=== PATIENT | male | born 1945 | race Caucasian/White ===

== ENCOUNTER 2022-08-25 10:17 | Observation (INO) | payer OTHER, MEDICARE, SELFPAY ==
--- NOTE | ~2022-08-25 | CT_ITS ---
EXAMINATION: CT ANGIOGRAM NECK WITH CONTRAST CT ANGIOGRAM BRAIN WITH CONTRAST CLINICAL INFORMATION: Diplopia. Rule out optic chiasm mass. COMPARISON: None. TECHNIQUE: Test bolus sequences followed by intravenous administration 100 mL of Omnipaque 350. Helical imaging was performed in the axial plane from the thoracic inlet to the skull vertex. Delayed postcontrast imaging of the head was also performed. The data was processed at the tomography technologist workstation for generation of MIP sequences. Angled MIPs and volume rendered reformatted images were also generated at an offline 3D workstation. Stenoses are assessed in accordance with NASCET criteria unless otherwise indicated. This CT examination was performed using dose optimization techniques as appropriate, variously including the following: *Automated exposure control *Adjustment of mA and/or kV according to patient size (this includes techniques or standardized protocols for targeted exams where dose is matched to indication/reason for exam; i.e. extremities or head) *Use of iterative reconstruction technique DLP: [id number] mGy-cm FINDINGS: Head CT: There is no intracranial hemorrhage, extra-axial collection, mass effect, or territorial infarction. There is no abnormal enhancement. The ventricles are normal in size without hydrocephalus. There is no evidence of optic nerve compression. The right maxillary sinus is atelectatic and partly opacified. There is mild paranasal sinus mucosal thickening. Mastoids are clear. Neck CTA: Atheromatous changes are seen involving the aortic arch and great vessels. There is no great vessel stenosis. Significant atheromatous changes are seen at the carotid bifurcations resulting in less than 50% stenosis the proximal right internal carotid artery. There is approximately 50% stenosis of the proximal left internal carotid artery. Both cervical ICA segments are patent. There is focal severe stenosis of the right vertebral artery origin. Both vertebral arteries are otherwise patent. Head CTA: No large vessel occlusion is seen. Atheromatous changes are seen at the carotid bifurcations. The anterior circulation is patent. There is focal mild stenosis of the right vertebral artery dural penetration. Atheromatous changes are seen along the intradural right vertebral artery resulting in mild stenosis. The basilar artery and rat trapper are patent. Both posterior communicating arteries are present. No aneurysm is seen. Non-vascular findings: No consolidation is seen in the upper lungs. Multilevel degenerative changes are seen within the spine. There is moderate to severe spinal canal stenosis at C5-C6 and C6-C7. CT/CT angio head neck IMPRESSION: CT HEAD: No intracranial hemorrhage or large acute infarction. No evidence of optic nerve compression. CTA NECK: Severe stenosis of the right vertebral artery origin. Approximately 50% stenosis of the proximal left internal carotid artery. Less than 50% stenosis of the proximal right internal carotid artery. CTA HEAD: 1. No large vessel occlusion or significant stenosis within the intracranial circulation. Additional findings: Severe spinal canal stenosis at C5-C6 and C6-C7.
--- NOTE | ~2022-08-25 | MR_ITS ---
MRI OF THE BRAIN WITHOUT IV CONTRAST INDICATION: Diplopia. COMPARISON: CT head and CTA head and neck 08/25/2022. TECHNIQUE: Multiplanar multisequence MR imaging of the brain was obtained without IV contrast. FINDINGS: There is no hydrocephalus, extra-axial surface collection, or herniation. There is a band of chronic encephalomalacia and gliosis extending across the body of the corpus callosum centrally. Partial loss of the right vertebral artery flow void in keeping with a severe right vertebral artery stenosis seen on the earlier CTA of the head and neck. There is no acute infarct on diffusion-weighted imaging. There is no intracranial hemorrhage on the gradient recalled echo acquisition. Punctate focus of chronic hemosiderin staining within the right occipital lobe. The midline structures are normal. The cerebellar tonsils are normally positioned. The cerebellum and brainstem are normal. The craniocervical junction is normal. Osseous marrow signal intensity is homogenous. The visualized soft tissues are unremarkable. Right maxillary sinus is atelectatic. Mild mucosal thickening throughout the paranasal sinuses. Mastoid air cells are clear. MR/MR head/brain wo con IMPRESSION: - No acute intracranial findings. - There is a band of chronic encephalomalacia and gliosis extending across the body of the corpus callosum centrally. - Partial loss of the right vertebral artery flow void in keeping with a severe right vertebral artery stenosis seen on the earlier CTA of the head and neck.
--- NOTE | ~2022-08-25 | CT_ITS ---
EXAMINATION: CT HEAD WITHOUT CONTRAST CLINICAL INFORMATION: Double vision COMPARISON: None available. TECHNIQUE: Contiguous axial imaging was performed from the skull base to vertex without intravenous administration of contrast. This CT examination was performed using dose optimization techniques as appropriate, variously including the following: *Automated exposure control *Adjustment of mA and/or kV according to patient size (this includes techniques or standardized protocols for targeted exams where dose is matched to indication/reason for exam; i.e. extremities or head) *Use of iterative reconstruction technique DLP: 690 mGy-cm FINDINGS: There is no evidence of an extra-axial axial collection. There is no evidence of intra-axial extra-axial hemorrhage. The ventricles and extra-axial CSF spaces are slightly prominent suggestive of mild generalized atrophy. There is nonspecific periventricular white matter disease. No mass, mass effect or infarct is seen. There is evidence of atherosclerotic disease. No skull fracture. The right maxillary sinus is smaller than the left. There is a polyp or membranous soft tissue thickening seen in the right maxillary sinus. Visualized paranasal sinuses, mastoid air cells and middle ears are otherwise clear. CT/CT head/brain wo IV con IMPRESSION: No acute findings. Mild generalized atrophy and nonspecific periventricular white matter disease. Mild right maxillary sinus disease.
[2022-08-25 10:20] VITALS: BP 132/60; PULSE 89; RESP 19; TEMP 36.6; O2SAT 98; BMI 31.4
[2022-08-25 13:33] VITALS: BP 134/86; PULSE 88; RESP 18; TEMP 36; O2SAT 97
--- NOTE | 2022-08-25 13:34 | ED.EYEPROB ---
HPI - Eye Problem General Chief complaint: Eye Problems <JUAREZ Butler - Last Filed: 08/25/22 13:36> Stated complaint: Blurred vision [facility] <JUAREZ Butler - Last Filed: 08/25/22 13:36> Time Seen by Provider: 08/25/22 17:55 <JUAREZ Butler - Last Filed: 08/25/22 13:36> Source: patient, RN notes reviewed and old records reviewed <Tristin Fong - Last Filed: 08/25/22 23:05> Mode of arrival: ambulatory <Tristin Fong - Last Filed: 08/25/22 23:05> Limitations: no limitations <Tristin Fong - Last Filed: 08/25/22 23:05> History of Present Illness HPI Narrative: 77-year-old male past medical history significant for diabetes, hypertension, glaucoma, cataract presents for evaluation of double vision. Patient reports that starting around mid day on Thursday, 3 days ago he developed double vision in his left eye He states if he has both with eyes open ever since then he is seeing two of everything. He denies any headache, pain, weakness difficulty speaking. Patient has been using eye patch to the left eye to prevent double vision for the last 3 days He [facility] but was told to come to emergency department instead He is not on any anticoagulation He has no other complaints or concerns this time <Tristin Fong - Last Filed: 08/25/22 23:05> Related Data Allergies/adverse reactions: Allergies Allergy/AdvReac Type Severity Reaction Status Date / Time amlodipine [Norvasc] Allergy Unknown headache Verified 08/25/22 10:20 bupropion [Wellbutrin] Allergy Unknown nausea and Verified 08/25/22 10:20 vomiting penicillin V Allergy Unknown rash Verified 08/25/22 10:20 Penicillins [PENICILLINS] Allergy Unknown UNKNOWN Verified 08/25/22 10:20 <JUAREZ Butler - Last Filed: 08/25/22 13:36> Review of Systems Constitutional: Constitutional: Reports as per HPI, Denies chills, Denies fatigue and Denies fever(s) <Tristin Fong - Last Filed: 08/25/22 23:05> Eyes: Eyes: Reports diplopia <Tristin Fong - Last Filed: 08/25/22 23:05> Cardiovascular: Cardiovascular: Denies chest pain and Denies dyspnea <Tristin Fong - Last Filed: 08/25/22 23:05> Respiratory: Respiratory: Denies cough and Denies dyspnea <Tristin Fong - Last Filed: 08/25/22 23:05> Gastrointestinal: Gastrointestinal: Denies abdominal pain, Denies constipation and Denies vomiting <Tristin Fong - Last Filed: 08/25/22 23:05> Genitourinary: Genitourinary: Denies difficulty urinating and Denies dysuria <Tristin Fong - Last Filed: 08/25/22 23:05> Neurologic: Denies focal weakness <Tristin Fong - Last Filed: 08/25/22 23:05> Endocrine: Endocrine: Denies fatigue <Tristin Fong - Last Filed: 08/25/22 23:05> [facility] Past Medical History Medical History: Medical History (Updated 08/25/22 @ 23:05 by Tristin Fong) Cataracts, bilateral Diabetes Hypertension <JUAREZ Butler - Last Filed: 08/25/22 13:36> Social History Social History: Social History (Updated 08/25/22 @ 22:48 by Wendy Mccallum MD) Alcohol intake: current Patient Tobacco Use Status: Former Tobacco user Use of substances other than those prescribed or required for medical reasons: No Advance Directives: No Advance Directives Information Provided: Yes <JUAREZ Butler - Last Filed: 08/25/22 13:36> Physical Exam Vital Signs: Vital Signs: Last Vital Signs Temp 97.9 F 08/25/22 22:00 Pulse 73 08/25/22 22:00 Resp 16 08/25/22 22:00 BP 129/81 08/25/22 22:00 Pulse Ox 98 08/25/22 22:00 O2 Del Method Room Air 08/25/22 22:00 BMI result Body Mass Index 31.4 <JUAREZ Butler - Last Filed: 08/25/22 13:36> Vital Signs: Last Vital Signs Temp 97.9 F 08/25/22 22:00 Pulse 73 08/25/22 22:00 Resp 16 08/25/22 22:00 BP 129/81 08/25/22 22:00 Pulse Ox 98 08/25/22 22:00 O2 Del Method Room Air 08/25/22 22:00 BMI result Body Mass Index 31.4 <Tristin - Last Filed: 08/25/22 23:05> Const: General: healthy appearing, comfortable, no acute distress, alert and awake < - Last Filed: 08/25/22 23:05> Nutritional Appearance: well nourished < - Last Filed: 08/25/22 23:05> Orientation/consciousness: patient oriented x3 < - Last Filed: 08/25/22 23:05> HEENT: Head: Yes normocephalic and Yes atraumatic < - Last Filed: 08/25/22 23:05> Throat: Yes posterior oropharynx normal < - Last Filed: 08/25/22 23:05> Eyes: Other: 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 < - Last Filed: 08/25/22 23:05> Visual Abbott: normal visual abbott by confrontation < Last Filed: 08/25/22 23:05> Alignment and Position: alignment normal (Patient has a slight left medial nystagmus) <Tristin - Last Filed: 08/25/22 23:05> Periorbital: periorbital findings normal < - Last Filed: 08/25/22 23:05> Eyelids: Yes eyelids normal < - Last Filed: 08/25/22 23:05> Conjunctivae: conjunctivae normal < - Last Filed: 08/25/22 23:05> Sclerae: sclerae normal < - Last Filed: 08/25/22 23:05> Pupils: Equal, round and reactive pupils present < - Last Filed: 08/25/22 23:05> EOM: EOMs intact bilaterally (In all cardinal directions) and No Nystagmus present <Tristin CullenJose - Last Filed: 08/25/22 23:05> Neck: Neck: Yes full ROM <Tristincesar Fong - Last Filed: 08/25/22 23:05> Resp: Effort & Inspection: normal respiratory effort, able to speak in complete sentences, no audible wheezes and not labored <Tristin Gloriay - Last Filed: 08/25/22 23:05> Auscultation: clear to auscultation bilaterally <Tristin Gloriay - Last Filed: 08/25/22 23:05> Cardio: Rate: regular rate <Tristin CullenCaroy - Last Filed: 08/25/22 23:05> Rhythm: regular rhythm <Tristin OFelice - Last Filed: 08/25/22 23:05> Skin: General skin exam: no rashes or lesions noted and elasticity normal <Tristin CullenCaroy - Last Filed: 08/25/22 23:05> Neuro: General: patient oriented x3 <Tristin Gloriay - Last Filed: 08/25/22 23:05> Cranial nerves: Yes CN's II-XII intact bilaterally, Yes Equal, round and reactive pupils present, Yes Bilaterally intact EOM present and No Nystagmus present <Tristin CullenJose Last Filed: 08/25/22 23:05> Cognition (Neuro): normal cognition <Tristin Hetal - Last Filed: 08/25/22 23:05> Course Course Course Narrative: RME - 77 y/o male with history of DM, HTN who presents to the ER for evaluation of left eye double vision that came on suddenly 4 days ago. He has been wearing an eye patch on the left eye because it was bothering him. No weakness, numbness, tingling, dizziness. Plan: CT head, labs, eye exam in treatment room <JUAREZ Butler - Last Filed: 08/25/22 13:36> Reevaluation(s) Reevaluation #1: Unfortunately, we were unable to get MRI today, as they are not available. I will attempt to admit the patient to hospitalist service for MRI. <Tristin Fong - Last Filed: 08/25/22 23:05> Time: 19:56 <Tristin Fong - Last Filed: 08/25/22 23:05> Reevaluation #2: I spoke to Dr. Mccallum who recommend CT angiography of the head and neck which was ordered. After Dr Mccallum saw the patient, she recommend adding on CT orbit with contrast which are ordered as well. I discussed this with the biological science technician prior to the patient receiving the exam is <Tristin Fong - Last Filed: 08/25/22 23:05> Time: 20:10 <Tristin Fong - Last Filed: 08/25/22 23:05> Medications Administered Discontinued Medications Generic Name Dose Route Start Last Admin Trade Name Freq PRN Reason Stop Dose Admin Acetaminophen 650 mg 08/25/22 20:35 08/25/22 21:46 Acetaminophen 325 Mg Tablet PO 08/25/22 20:36 650 mg ONCE ONE Administration Iohexol 100 ml 08/25/22 21:34 08/25/22 21:34 Iohexol 350 Mg/Ml 100 Ml Infus..Btl IV 08/25/22 21:35 70 ml ONCE ONE Administration <JUAREZ Butler - Last Filed: 08/25/22 13:36> Medications Administered Discontinued Medications Generic Name Dose Route Start Last Admin Trade Name Freq PRN Reason Stop Dose Admin Acetaminophen 650 mg 08/25/22 20:35 08/25/22 21:46 Acetaminophen 325 Mg Tablet PO 08/25/22 20:36 650 mg ONCE ONE Administration Iohexol 100 ml 08/25/22 21:34 08/25/22 21:34 Iohexol 350 Mg/Ml 100 Ml Infus..Btl IV 08/25/22 21:35 70 ml ONCE ONE Administration <Tristin Fong - Last Filed: 08/25/22 23:05> Medical Decision Making Medical Decision Making MDM Narrative: 77-year-old male presents for evaluation of sudden onset of diplopia started 3 days ago. He had no associated weakness, dizziness, slurred speech. Concern for mass versus CVA. Labs are without significant abnormality. CT scan of the brain does not show any acute findings. Will proceed with MRI of the brain to evaluate for acute CVA versus mass. The patient had no trauma to the eye, no pain to suggest acute glaucoma issue. Current NIH stroke score is 0 <Tristin Fong - Last Filed: 08/25/22 23:05> Differential Diagnosis CVA Brain lesion Cranial nerve palsy Diplopia <Tristin Fong - Last Filed: 08/25/22 23:05> Lab Data Result Diagrams: 08/25/22 13:57 08/25/22 13:57 <JUAREZ Butler - Last Filed: 08/25/22 13:36> Labs: Lab Results 08/25/22 08/25/22 08/25/22 Range/Units 13:57 13:57 13:57 WBC 7.3 (4.8-10.8) X10*3/uL RBC 4.95 (4.60-5.80) X10*6/uL Hgb 15.2 (14.0-18.0) g/dl Hct 45.2 (42.0-52.0) % MCV 91.3 (80.0-98.0) fL MCH 30.7 (27.0-33.0) pg MCHC 33.6 (31.0-36.0) g/dl RDW 13.2 (11.0-16.0) % Plt Count 230 (160-400) X10*3/uL MPV 9.2 L (9.4-12.4) fL Immature Gran % (Auto) 0.3 (0.0-0.4) % Neut % (Auto) 55.4 (45-73) % Lymph % (Auto) 33.4 (20-40) % [place] % (Auto) 8.2 (2-11) % Eos % (Auto) 2.2 (0-4) % Baso % (Auto) 0.5 (0-2) % Lymph # (Auto) 2.4 (1.2-4.9) X10*3/uL [place] # (Auto) 0.6 (0.1-1.2) X10*3/uL Eos # (Auto) 0.2 (0.0-0.4) X10*3/uL Baso # (Auto) 0.0 (0.0-0.2) X10*3/uL Abs Immat Gran (auto) 0.02 (0.00-0.03) X10*3/uL Absolute Neuts (auto) 4.0 (2.0-8.3) x10*3/uL Absolute Nucleated RBC 0.000 (0.0-0.012) X10*3/uL Nucleated RBC % (auto) 0.0 (0.0-0.2) /100WBC ESR 16 H (0-15) MM/HR Sodium 143 (135-145) mmol/L Potassium 4.1 (3.3-5.1) mmol/L Chloride 109 H (96-108) mmol/L Carbon Dioxide 22 (22-29) mmol/L Anion Gap 16 (12-20) BUN 33 H (9-16) mg/dL Creatinine 1.04 (0.5-1.4) mg/dL Estim Creat Clear Calc 72.3 Estimated GFR > 60 POC Glucose (60-115) mg/dL Random Glucose 158 H (60-115) mg/dL Estimat Average Glucose mg/dL Hemoglobin A1c % % Calcium 9.6 (8.4-10.2) mg/dL Total Bilirubin 0.4 (0.0-1.0) mg/dL AST 14 (5-37) U/L ALT 20 (0-40) U/L Alkaline Phosphatase 55 (39-117) U/L C-Reactive Protein 0.85 H (< or = 0.50) mg/dL Total Protein 7.2 (6.5-8.0) g/dL Albumin 4.4 (3.5-5.0) g/dL 08/25/22 08/25/22 Range/Units 13:57 19:35 WBC (4.8-10.8) X10*3/uL RBC (4.60-5.80) X10*6/uL Hgb (14.0-18.0) g/dl Hct (42.0-52.0) % MCV (80.0-98.0) fL MCH (27.0-33.0) pg MCHC (31.0-36.0) g/dl RDW (11.0-16.0) % Plt Count (160-400) X10*3/uL MPV (9.4-12.4) fL Immature Gran % (Auto) (0.0-0.4) % Neut % (Auto) (45-73) % Lymph % (Auto) (20-40) % [place] % (Auto) (2-11) % Eos % (Auto) (0-4) % Baso % (Auto) (0-2) % Lymph # (Auto) (1.2-4.9) X10*3/uL [place] # (Auto) (0.1-1.2) X10*3/uL Eos # (Auto) (0.0-0.4) X10*3/uL Baso # (Auto) (0.0-0.2) X10*3/uL Abs Immat Gran (auto) (0.00-0.03) X10*3/uL Absolute Neuts (auto) (2.0-8.3) x10*3/uL Absolute Nucleated RBC (0.0-0.012) X10*3/uL Nucleated RBC % (auto) (0.0-0.2) /100WBC ESR (0-15) MM/HR Sodium (135-145) mmol/L Potassium (3.3-5.1) mmol/L Chloride (96-108) mmol/L Carbon Dioxide (22-29) mmol/L Anion Gap (12-20) BUN (9-16) mg/dL Creatinine (0.5-1.4) mg/dL Estim Creat Clear Calc Estimated GFR POC Glucose 137 H (60-115) mg/dL Random Glucose (60-115) mg/dL Estimat Average Glucose 171 mg/dL Hemoglobin A1c % 7.6 % Calcium (8.4-10.2) mg/dL Total Bilirubin (0.0-1.0) mg/dL AST (5-37) U/L ALT (0-40) U/L Alkaline Phosphatase (39-117) U/L C-Reactive Protein (< or = 0.50) mg/dL Total Protein (6.5-8.0) g/dL Albumin (3.5-5.0) g/dL <JUAREZ Butler - Last Filed: 08/25/22 13:36> Lab Results 08/25/22 08/25/22 08/25/22 Range/Units 13:57 13:57 13:57 WBC 7.3 (4.8-10.8) X10*3/uL RBC 4.95 (4.60-5.80) X10*6/uL Hgb 15.2 (14.0-18.0) g/dl Hct 45.2 (42.0-52.0) % MCV 91.3 (80.0-98.0) fL MCH 30.7 (27.0-33.0) pg MCHC 33.6 (31.0-36.0) g/dl RDW 13.2 (11.0-16.0) % Plt Count 230 (160-400) X10*3/uL MPV 9.2 L (9.4-12.4) fL Immature Gran % (Auto) 0.3 (0.0-0.4) % Neut % (Auto) 55.4 (45-73) % Lymph % (Auto) 33.4 (20-40) % [place] % (Auto) 8.2 (2-11) % Eos % (Auto) 2.2 (0-4) % Baso % (Auto) 0.5 (0-2) % Lymph # (Auto) 2.4 (1.2-4.9) X10*3/uL [place] # (Auto) 0.6 (0.1-1.2) X10*3/uL Eos # (Auto) 0.2 (0.0-0.4) X10*3/uL Baso # (Auto) 0.0 (0.0-0.2) X10*3/uL Abs Immat Gran (auto) 0.02 (0.00-0.03) X10*3/uL Absolute Neuts (auto) 4.0 (2.0-8.3) x10*3/uL Absolute Nucleated RBC 0.000 (0.0-0.012) X10*3/uL Nucleated RBC % (auto) 0.0 (0.0-0.2) /100WBC ESR 16 H (0-15) MM/HR Sodium 143 (135-145) mmol/L Potassium 4.1 (3.3-5.1) mmol/L Chloride 109 H (96-108) mmol/L Carbon Dioxide 22 (22-29) mmol/L Anion Gap 16 (12-20) BUN 33 H (9-16) mg/dL Creatinine 1.04 (0.5-1.4) mg/dL Estim Creat Clear Calc 72.3 Estimated GFR > 60 POC Glucose (60-115) mg/dL Random Glucose 158 H (60-115) mg/dL Estimat Average Glucose mg/dL Hemoglobin A1c % % Calcium 9.6 (8.4-10.2) mg/dL Total Bilirubin 0.4 (0.0-1.0) mg/dL AST 14 (5-37) U/L ALT 20 (0-40) U/L Alkaline Phosphatase 55 (39-117) U/L C-Reactive Protein 0.85 H (< or = 0.50) mg/dL Total Protein 7.2 (6.5-8.0) g/dL Albumin 4.4 (3.5-5.0) g/dL 08/25/22 08/25/22 Range/Units 13:57 19:35 WBC (4.8-10.8) X10*3/uL RBC (4.60-5.80) X10*6/uL Hgb (14.0-18.0) g/dl Hct (42.0-52.0) % MCV (80.0-98.0) fL MCH (27.0-33.0) pg MCHC (31.0-36.0) g/dl RDW (11.0-16.0) % Plt Count (160-400) X10*3/uL MPV (9.4-12.4) fL Immature Gran % (Auto) (0.0-0.4) % Neut % (Auto) (45-73) % Lymph % (Auto) (20-40) % [place] % (Auto) (2-11) % Eos % (Auto) (0-4) % Baso % (Auto) (0-2) % Lymph # (Auto) (1.2-4.9) X10*3/uL [place] # (Auto) (0.1-1.2) X10*3/uL Eos # (Auto) (0.0-0.4) X10*3/uL Baso # (Auto) (0.0-0.2) X10*3/uL Abs Immat Gran (auto) (0.00-0.03) X10*3/uL Absolute Neuts (auto) (2.0-8.3) x10*3/uL Absolute Nucleated RBC (0.0-0.012) X10*3/uL Nucleated RBC % (auto) (0.0-0.2) /100WBC ESR (0-15) MM/HR Sodium (135-145) mmol/L Potassium (3.3-5.1) mmol/L Chloride (96-108) mmol/L Carbon Dioxide (22-29) mmol/L Anion Gap (12-20) BUN (9-16) mg/dL Creatinine (0.5-1.4) mg/dL Estim Creat Clear Calc Estimated GFR POC Glucose 137 H (60-115) mg/dL Random Glucose (60-115) mg/dL Estimat Average Glucose 171 mg/dL Hemoglobin A1c % 7.6 % Calcium (8.4-10.2) mg/dL Total Bilirubin (0.0-1.0) mg/dL AST (5-37) U/L ALT (0-40) U/L Alkaline Phosphatase (39-117) U/L C-Reactive Protein (< or = 0.50) mg/dL Total Protein (6.5-8.0) g/dL Albumin (3.5-5.0) g/dL <Tristin Fong - Last Filed: 08/25/22 23:05> Discharge Plan Discharge Clinical Impression: Diplopia <JUAREZ Butler - Last Filed: 08/25/22 13:36> Patient Disposition: Admitted As Inpatient <JUAREZ Butler - Last Filed: 08/25/22 13:36>
[2022-08-25 14:00] LABS: MANUAL DIFF FLAG NO
[2022-08-25 14:08] LABS: Basophils Percent Auto 0.5 % (0-2); Eosinophils Absolute Auto 0.2 X10*3/uL (0.0-0.4); Eosinophils Percent Auto 2.2 % (0-4); Hematocrit 45.2 % (42.0-52.0); Hemoglobin 15.2 g/dl (14.0-18.0); Imm Gran Abs Auto 0.02 X10*3/uL (0.00-0.03); Imm Gran Pct Auto 0.3 % (0.0-0.4); Lymphocytes Absolute Auto 2.4 X10*3/uL (1.2-4.9); Lymphocytes Percent Auto 33.4 % (20-40); Mean Corpuscular HGB Conc 33.6 g/dl (31.0-36.0); Mean Corpuscular Hemoglobin 30.7 pg (27.0-33.0); Mean Corpuscular Volume 91.3 fL (80.0-98.0); Mean Platelet Volume 9.2 fL (9.4-12.4); Monocytes Absolute Auto 0.6 X10*3/uL (0.1-1.2); Monocytes Percent Auto 8.2 % (2-11); Neutrophils Percent Auto 55.4 % (45-73); Platelet Count 230 X10*3/uL (160-400); Red Blood Count 4.95 X10*6/uL (4.60-5.80); Red Cell Distribution Width 13.2 % (11.0-16.0); White Blood Count 7.3 X10*3/uL (4.8-10.8)
[2022-08-25 14:26] LABS: Alanine Aminotransferase 20 U/L (0-40); Albumin Level 4.4 g/dL (3.5-5.0); Alkaline Phosphatase 55 U/L (39-117); Anion Gap 16 (12-20); Aspartate Amino Transferase 14 U/L (5-37); Bilirubin Total 0.4 mg/dL (0.0-1.0); Blood Urea Nitrogen 33 mg/dL (9-16); C Reactive Protein 0.85 mg/dL (< or = 0.50); Calcium 9.6 mg/dL (8.4-10.2); Carbon Dioxide 22 mmol/L (22-29); Chloride 109 mmol/L (96-108); Creatinine Clr Calc Pharmacy 72.3; Estimated Glomerular Filt Rate > 60; Glucose Random 158 mg/dL (60-115); Potassium 4.1 mmol/L (3.3-5.1); Sodium 143 mmol/L (135-145); Total Protein 7.2 g/dL (6.5-8.0)
[2022-08-25 14:39] LABS: Estimated Average Glucose 171 mg/dL; Hemoglobin A1c % 7.6 %
[2022-08-25 15:11] LABS: Erythrocyte Sedimentation Rate 16 MM/HR (0-15)
[2022-08-25 19:28] VITALS: BP 160/82; PULSE 71; RESP 16; TEMP 36.6; O2SAT 98
--- NOTE | 2022-08-25 19:30 | MHC.EDTECH ---
THIS PCT ASSUMED CARE OF PT AT 1900 ,PT VISUAL ACUITY CHECK DONE AND VITALS SIGN TAKEN.
--- NOTE | 2022-08-25 19:36 | MHC.EDTECH ---
patient said he been here since morning, asked if i could check his sugar because ,he did not eat anything since morning ,blood sugar was checked rn Shivani is aware of result of 137 ,Grham cracker and diet tana zeina given .
[2022-08-25 19:53] LABS: Glucose, Whole Blood 137 mg/dL (60-115)
[2022-08-25] MEDS: iohexoL 350 MG/ML 100 ML INFUS..BTL IV (21:34)
[2022-08-25] MEDS: Acetaminophen 325 MG TABLET 650 MG PO (21:46)
[2022-08-25 22:00] VITALS: BP 129/81; PULSE 73; RESP 16; TEMP 36.6; O2SAT 98
[2022-08-25 22:42] VITALS: BP 127/71; PULSE 71; RESP 16; TEMP 36.7; O2SAT 98
--- NOTE | 2022-08-25 22:43 | P.HPHOSP_ITS ---
History of Present Illness Date of Service: 08/25/22 Chief Complaint: double vision 77-year-old male with past medical history of hypertension, diabetes presents to the hospital with complaints of double vision in his left eye.No pain, no tenderness. Denies any trauma, no recent injury, reports no numbness weakness or tingling in face or extremities. Reports no change in his speech. Reports diplopia since Thursday, sudden onset, no other change in vision. Denies any history of stroke, no similar episode in the past. Patient reports developing a headache while in the ED but otherwise denies any chest pain, no shortness of breath, no abdominal pain nausea or vomiting, no diarrhea or constipation, no ur inary symptoms and no lower extremity edema. On arrival to the ED patient hemodynamically stable labs reviewed, on with no significant abnormalities Has CT shows no acute findings, shows mild generalized atrophy and nonspecific periventricular white matter disease, mild right maxillary sinus disease Head and neck CT angiogram shows no large vessel occlusion or significant stenosis within the intracranial circulation, no mass, and no evidence of optic nerve compression. There is severe spinal canal stenosis at C5-C6 and C6 and C7 MRI ordered and patient will be admitted for further evaluation Review of Systems Review of Systems: Yes all other systems are reviewed and are negative [facility] Medical History (Updated 08/25/22 @ 22:48 by Wendy Mccallum MD) Cataracts, bilateral Diabetes Hypertension Social History (Updated 08/25/22 @ 22:48 by Wendy Mccallum MD) Alcohol intake: current Patient Tobacco Use Status: Former Tobacco user Meds Allergies Allergy/AdvReac Type Severity Reaction Status Date / Time amlodipine [Norvasc] Allergy Unknown headache Verified 08/25/22 10:20 bupropion [Wellbutrin] Allergy Unknown nausea and Verified 08/25/22 10:20 vomiting penicillin V Allergy Unknown rash Verified 08/25/22 10:20 Penicillins [PENICILLINS] Allergy Unknown UNKNOWN Verified 08/25/22 10:20 Physical Exam Vital Signs and Narrative: Vital Signs: Last Vital Signs Temp 97.9 F 08/25/22 22:00 Pulse 73 08/25/22 22:00 Resp 16 08/25/22 22:00 BP 129/81 08/25/22 22:00 Pulse Ox 98 08/25/22 22:00 O2 Del Method Room Air 08/25/22 22:00 BMI result Body Mass Index 31.4 Eyes: Other: right eye redness left eye has white growth in 12 o'clock that appears to be a pterygium Neuro: Other: cranial nerves 2-12 intact, strength 5/5 in all extremities, Results Labs 08/25/22 13:57 08/25/22 13:57 Labs: Laboratory Results - last 24 hr 08/25/22 08/25/22 08/25/22 13:57 13:57 13:57 MCV 91.3 MCH 30.7 MCHC 33.6 RDW 13.2 Plt Count 230 MPV 9.2 L Immature Gran % (Auto) 0.3 Neut % (Auto) 55.4 Lymph % (Auto) 33.4 [place] % (Auto) 8.2 Eos % (Auto) 2.2 Baso % (Auto) 0.5 Lymph # (Auto) 2.4 [place] # (Auto) 0.6 Eos # (Auto) 0.2 Baso # (Auto) 0.0 Abs Immat Gran (auto) 0.02 Absolute Neuts (auto) 4.0 Absolute Nucleated RBC 0.000 Nucleated RBC % (auto) 0.0 ESR 16 H Anion Gap 16 Estim Creat Clear Calc 72.3 Estimated GFR > 60 POC Glucose Random Glucose 158 H Estimat Average Glucose Hemoglobin A1c % Calcium 9.6 Total Bilirubin 0.4 AST 14 ALT 20 Alkaline Phosphatase 55 C-Reactive Protein 0.85 H Total Protein 7.2 Albumin 4.4 08/25/22 08/25/22 13:57 19:35 MCV MCH MCHC RDW Plt Count MPV Immature Gran % (Auto) Neut % (Auto) Lymph % (Auto) [place] % (Auto) Eos % (Auto) Baso % (Auto) Lymph # (Auto) [place] # (Auto) Eos # (Auto) Baso # (Auto) Abs Immat Gran (auto) Absolute Neuts (auto) Absolute Nucleated RBC Nucleated RBC % (auto) ESR Anion Gap Estim Creat Clear Calc Estimated GFR POC Glucose 137 H Random Glucose Estimat Average Glucose 171 Hemoglobin A1c % 7.6 Calcium Total Bilirubin AST ALT Alkaline Phosphatase C-Reactive Protein Total Protein Albumin Imaging Radiologist's Impressions: Impressions Head CT 08/25/22 12:41 IMPRESSION: No acute findings. Mild generalized atrophy and nonspecific periventricular white matter disease. Mild right maxillary sinus disease. Head/Neck CTA 08/25/22 21:44 IMPRESSION: CT HEAD: No intracranial hemorrhage or large acute infarction. No evidence of optic nerve compression. CTA NECK: Severe stenosis of the right vertebral artery origin. Approximately 50% stenosis of the proximal left internal carotid artery. Less than 50% stenosis of the proximal right internal carotid artery. CTA HEAD: 1. No large vessel occlusion or significant stenosis within the intracranial circulation. Additional findings: Severe spinal canal stenosis at C5-C6 and C6-C7. Assessment and Plan (1) Diplopia: Status: Acute Plan 77-year-old male with past medical history of hypertension and diabetes presents to the hospital with complaints of diplopia # diplopia - CVA versus underlying opthlamthic ds less likely - risk factors for cva include dm, and HTN - will obtain MRI in am - will obtain Lipid battery - neurology consulted # HTN - stable - continue home meds - not in hypertensive crisis at this time # DM - LDSSI DVT ppx: early ambulation Time Spent With Patient Time: Total time managing care of this patient today ____ minutes. Quality Stroke Does the patient have a stroke diagnosis?: No VTE Prior VTE?: No VTE Risk Level:: Medical - low VTE Device Contraindication: Treatment Not Indicated VTE Drug Contraindication: Treatment Not Indicated
[2022-08-26] VITALS: BP 132/74; PULSE 76; RESP 16; TEMP 36.6; O2SAT 97
[2022-08-26 04:00] VITALS: BP 125/75; PULSE 71; RESP 16; TEMP 36.6; O2SAT 98
--- NOTE | 2022-08-26 04:00 | MHC.EDTECH ---
0400 ROUNDING DONE ,VITALS SIGN TAKEN ,PATIENT SLEEPING ,350 ML URINE EMPTY .
[2022-08-26 07:02] LABS: Alanine Aminotransferase 21 U/L (0-40); Albumin Level 4.1 g/dL (3.5-5.0); Alkaline Phosphatase 51 U/L (39-117); Anion Gap 11 (12-20); Aspartate Amino Transferase 18 U/L (5-37); Bilirubin Total 0.7 mg/dL (0.0-1.0); Blood Urea Nitrogen 30 mg/dL (9-16); Calcium 9.3 mg/dL (8.4-10.2); Carbon Dioxide 26 mmol/L (22-29); Chloride 107 mmol/L (96-108); Cholesterol 167 mg/dL; Creatinine Clr Calc Pharmacy 87.4; Estimated Glomerular Filt Rate > 60; Glucose Random 153 mg/dL (60-115); HDL Cholesterol 30 mg/dL; LDL Cholesterol Calculated 84 mg/dl; Potassium 3.8 mmol/L (3.3-5.1); Sodium 140 mmol/L (135-145); Total Protein 6.6 g/dL (6.5-8.0); Triglycerides 265 mg/dL
[2022-08-26 07:03] VITALS: BP 148/82; PULSE 71; RESP 14; O2SAT 97
[2022-08-26 07:13] LABS: Glucose, Whole Blood 157 mg/dL (60-115)
[2022-08-26] MEDS: Insulin Lispro 100 UNIT/ML 3 ML VIAL SUBCUT ×2 (07:37→13:56)
[2022-08-26] MEDS: 0.9 % Sodium Chloride Flush 3 ML SYRINGE IVFLUSH ×2 (07:38)
--- NOTE | 2022-08-26 10:25 | P.CNNE_ITS ---
History of Present Illness Data of Consult Service Date: 08/26/22 Primary Care Provider: JUAREZ Lovelace HPI Reason for consult: Diplopia This is a 77-year-old male with h/o hypertension, diabetes presents to the hospital with complaints of double vision with both eyes open since Thursday but no pain, no tenderness.? Denies any trauma, no recent injury, reports no numbness weakness or tingling in face or extremities, change in his speech or swallowing.?Denies any history of stroke, no similar episode in the past.? Patient? reports developing a headache while in the ED but otherwise denies any chest pain, no shortness of breath. CT and MRI shows no acute findings, shows mild generalized atrophy and nonspecific periventricular white matter disease and corpus callosum small band of encephalomalacia in the body of CC. Head and neck CT angiogram shows no large vessel occlusion or significant stenosis within the intracranial circulation, no mass, and no evidence of optic nerve compression. Review of Systems Review of Systems: Yes all other systems are reviewed and are negative Constitutional: Constitutional: Reports as per HPI, Denies chills, Denies fatigue and Denies fever(s) Eyes: Eyes: Reports diplopia Cardiovascular: Cardiovascular: Denies chest pain and Denies dyspnea Respiratory: Respiratory: Denies cough and Denies dyspnea Gastrointestinal: Gastrointestinal: Denies abdominal pain, Denies constipation and Denies vomiting Genitourinary: Genitourinary: Denies difficulty urinating and Denies dysuria Neurologic: Denies focal weakness Endocrine: Endocrine: Denies fatigue FOR[facility], [facility] Past Medical History Medical History (Updated 08/25/22 @ 23:05 by Tristin Fong) Cataracts, bilateral Diabetes Hypertension Social History Social History (Updated 08/25/22 @ 22:48 by Wendy Mccallum MD) Household Members: Spouse Housing: [facility] Do you presently have visiting nurse or other home services: No Alcohol intake: current Alcohol intake frequency: holidays/special occasions only Alcohol type: beer Patient Tobacco Use Status: Former Tobacco user Quit Date: 1981 Tobacco use type: Cigarette Years Smoked: 12 Smoked in Last 30 Days: No e-Cigarette/Vaping Use: Never Used Patient Interested in Nicotine Replacement: No Second Hand Smoke Exposure: No Use of substances other than those prescribed or required for medical reasons: No Currently Displaying Signs/Symptoms of Drug Intoxication Withdrawal: No Any prior treatment program specific to substance use: No Have you been hit, kicked, punched, or otherwise hurt by someone within the past year? If so, by whom?: No Do you feel safe in your current relationship?: Yes Is there a partner from a previous relationship who is making you feel unsafe now?: No Are you made to feel afraid or neglected: No Advance Directives: No Advance Directives Information Provided: Yes Do you have thoughts of harming others: None Do you have a plan to hurt others: No Plan Recently lost weight without trying: No Eating poorly because of decreased appetite: No Nutrition Risks: No Nutritional Risk Poor oral hygiene: No service: Yes Current occupational status: retired Meds Allergies Allergy/AdvReac Type Severity Reaction Status Date / Time amlodipine [Norvasc] Allergy Unknown headache Verified 08/25/22 10:20 bupropion [Wellbutrin] Allergy Unknown nausea and Verified 08/25/22 10:20 vomiting penicillin V Allergy Unknown rash Verified 08/25/22 10:20 Penicillins [PENICILLINS] Allergy Unknown UNKNOWN Verified 08/25/22 10:20 Active Medications: Current Medications Acetaminophen (Acetaminophen 325 Mg Tablet) 650 mg PO Q6H PRN PRN Reason: Pain, Mild (Pain Scale 1-3) Docusate Sodium (Docusate Sodium 100 Mg Capsule) 100 mg PO DAILY PRN PRN Reason: Constipation Glucose (Glucose Gel 15 Gm Gel..Gram.) 15 gm PO Q15M PRN; Protocol PRN Reason: per Hypoglycemia Standing Ord. Dextrose (D10) 250 mls @ 750 mls/hr IV Q15M PRN; Protocol PRN Reason: per Hypoglycemia Standing Ord. Insulin Human Lispro (Insulin Lispro 100 Unit/Ml 3 Ml Vial) 0 unit SUBCUT QIDACHS [facility]; Protocol Last Admin: 08/26/22 07:37 Dose: 2 unit Ondansetron HCl (Ondansetron Hcl 4 Mg/2 Ml Vial) 4 mg IVPUSH Q8H PRN PRN Reason: Nausea and Vomiting Sodium Chloride (0.9 % Sodium Chloride Flush 3 Ml Syringe) 3 ml IVFLUSH [facility] Last Admin: 08/26/22 07:38 Dose: 3 ml Physical Exam Vital Signs: Vital Signs: Last Vital Signs Temp 97.9 F 08/26/22 04:00 Pulse 71 08/26/22 07:03 Resp 14 08/26/22 07:03 BP 148/82 H 08/26/22 07:03 Pulse Ox 97 08/26/22 07:03 O2 Del Method Room Air 08/26/22 07:03 BMI result Body Mass Index 31.4 Const: General: healthy appearing, comfortable, no acute distress, alert and awake Nutritional Appearance: well nourished Orientation/consciousness: patient oriented x3 HEENT: Head: Yes normocephalic and Yes atraumatic Throat: Yes posterior oropharynx normal Eyes: Other: right eye redness left eye has white growth in 12 o'clock that appears to be a pterygium Visual Abbott: normal visual abbott by confrontation Alignment and Position: alignment normal (Patient has a slight left medial nystagmus) Periorbital: periorbital findings normal Eyelids: Yes eyelids normal Conjunctivae: conjunctivae normal Sclerae: sclerae normal Pupils: Equal, round and reactive pupils present EOM: EOMs intact bilaterally (In all cardinal directions) and No Nystagmus present Neck: Neck: Yes full ROM Resp: Effort & Inspection: normal respiratory effort, able to speak in complete sentences, no audible wheezes and not labored Auscultation: clear to auscultation bilaterally Cardio: Rate: regular rate Rhythm: regular rhythm Skin: General skin exam: no rashes or lesions noted and elasticity normal Neuro: Other: He has reproducible binocular horizontal diplopia with weakne upss of right lateral rectus and left medial rectus andand at times left la didteral rectus. The eye muscle wekness fluctuates and he is able toto fuse the 2 andimages at times for brief periods. No ptosis or eye closure weakness. Other cranial nerves are normal. He strength 5/5 in all extremities, General: patient oriented x3 Cranial nerves: Yes Equal, round and reactive pupils present and No Nystagmus present Cognition (Neuro): normal cognition Results Labs 08/25/22 13:57 08/26/22 06:04 Labs: Short CBC 08/25/22 Range/Units 13:57 WBC 7.3 (4.8-10.8) X10*3/uL Hgb 15.2 (14.0-18.0) g/dl Hct 45.2 (42.0-52.0) % Plt Count 230 (160-400) X10*3/uL BMP 08/25/22 08/26/22 13:57 06:04 Sodium 143 140 Potassium 4.1 3.8 Chloride 109 H 107 Carbon Dioxide 22 26 BUN 33 H 30 H Creatinine 1.04 0.86 Calcium 9.6 9.3 Liver Function 08/25/22 08/26/22 Range/Units 13:57 06:04 Total Bilirubin 0.4 0.7 (0.0-1.0) mg/dL AST 14 18 (5-37) U/L ALT 20 21 (0-40) U/L Alkaline Phosphatase 55 51 (39-117) U/L Albumin 4.4 4.1 (3.5-5.0) g/dL Assessment and Plan (1) Diplopia: Status: Acute R/o diabetic cranial nerve palsy versus ocular myasthenia. Recom. Acetyl choline receptor antibody titers modulating, neutralizing and blocking, Lyme titers. Alternating eye patch. F/U in office in 2-3 weeks Plan 77-year-old male with past medical history of hypertension and diabetes prese nts to the hospital with complaints of diplopia # diplopia - CVA versus underlying opthlamthic ds less likely - risk factors for cva include dm, and HTN - will obtain MRI in am - will obtain Lipid battery - neurology consulted # HTN - stable - continue home meds - not in hypertensive crisis at this time # DM - LDSSI DVT ppx: early ambulation Time Spent With Patient Time: Total time managing care of this patient today ____ minutes. Procedures Date of Service Date of Service: 08/26/22
[2022-08-26 11:42] LABS: Glucose, Whole Blood 152 mg/dL (60-115)
[2022-08-26 13:03] VITALS: BP 146/71; PULSE 75; RESP 20; TEMP 36.1; O2SAT 97
--- NOTE | 2022-08-26 13:09 | MHC.CM.PN ---
WENDY DELIVERED LIVES IN A CONDO WITH SPOUSE. INDEPENDENT AT BASELINE, HAS A CANE BUT RARELY USES. UNSURE IF HAS A COPY OF HCP, DECLINED TO DO A NEW ONE AT THIS TIME DESPITE EDUCATION. WILL F/U. +COVID VAX X4 PCP DR. NOVOA AT [facility]. DP: HOME WITH NO SERVICES ANTICIPATED. [facility] WILL TRANSPORT. CM WILL CONTINUE TO FOLLOW FOR ANY DC NEEDS.
[2022-08-26 15:11] VITALS: BP 144/74; PULSE 73; RESP 17; TEMP 36.4; O2SAT 94
[2022-08-26 15:39] LABS: Glucose, Whole Blood 227 mg/dL (60-115)
--- NOTE | 2022-08-26 15:54 | P.DS_ITS ---
DS: Providers Provider Date of Service: 08/26/22 Date of admission: 08/25/22 22:42 Primary care physician: JUAREZ Lovelace Consults: 08/25/22 22:42 Consult to Neurology Routine Consulting Provider: [facility] Reason for consultation: diplopia Has provider been notified: No DS: Diagnosis Discharge Diagnosis (1) Diplopia: Status: Acute DS: Summary Hospital Course Hospital Course: from initial hpi: 77-year-old male with past medical history of hypertension, diabetes presents to the hospital with complaints of double vision in his left eye.No pain, no tenderness.? Denies any trauma, no recent injury, reports no numbness weakness or tingling in face or extremities.? Reports no change in his speech.? Reports diplopia since Thursday, sudden onset, no other change in vision.? Denies any history of stroke, no similar episode in the past.? Patient? reports developing a headache while in the ED but otherwise denies any chest pain, no shortness of breath, no abdominal pain nausea or vomiting, no diarrhea or constipation, no urinary symptoms and no lower extremity edema.? On arrival to the ED patient hemodynamically stable ?labs reviewed, on with no significant abnormalities Has CT shows no acute findings, shows mild generalized atrophy and nonspecific periventricular white matter disease, mild right maxillary sinus disease Head and neck CT angiogram shows no large vessel occlusion or significant stenosis within the intracranial circulation, no mass, and no evidence of optic nerve compression. ? There is severe spinal canal stenosis at C5-C6 and C6 and C7 ?MRI ordered and patient will be admitted for further evaluation hospital course: patient was observed for diplopia, mri did not show acute finding (did have right verterbral atheroscelrosis) was seen by neuro who recommended ruling out myasthenia gravis, labs drawn and pending, should follow up with neuro outpatient. Time Spent with Patient Time attestation: Total time managing care of this patient today ____ minutes. Discharge coordination time: Greater than 30 minutes Quality: Safe Use of Opioids Does Pt have an Active Cancer Diagnosis on the Problem List?: No Quality: Stroke Does the patient have a stroke diagnosis?: No Physical Exam Vital Signs: Vital Signs: Last Vital Signs Temp 97.6 F 08/26/22 15:11 Pulse 73 08/26/22 15:11 Resp 17 08/26/22 15:11 BP 144/74 H 08/26/22 15:11 Pulse Ox 94 08/26/22 15:11 O2 Del Method Room Air 08/26/22 15:11 BMI result Body Mass Index 31.4 diplopia DS: Data Data Completed and Pending Labs on day of discharge: Laboratory Results - last 24 hr 08/25/22 08/26/22 08/26/22 19:35 06:04 07:07 Sodium 140 Potassium 3.8 Chloride 107 Carbon Dioxide 26 Anion Gap 11 L BUN 30 H Creatinine 0.86 Estim Creat Clear Calc 87.4 Estimated GFR > 60 POC Glucose 137 H 157 H Random Glucose 153 H Calcium 9.3 Total Bilirubin 0.7 AST 18 ALT 21 Alkaline Phosphatase 51 Total Protein 6.6 Albumin 4.1 Triglycerides 265 Cholesterol 167 LDL Cholesterol, Calc 84 HDL Cholesterol 30 08/26/22 08/26/22 11:38 15:12 Sodium Potassium Chloride Carbon Dioxide Anion Gap BUN Creatinine Estim Creat Clear Calc Estimated GFR POC Glucose 152 H 227 H Random Glucose Calcium Total Bilirubin AST ALT Alkaline Phosphatase Total Protein Albumin Triglycerides Cholesterol LDL Cholesterol, Calc HDL Cholesterol Discharge Plan Discharge Anticipated Discharge Date/Time: 08/26/22 15:52 Patient Disposition: Home, Self-Care Discharge Diagnosis: diplopia Referrals: Deb Bhatia MD [Physician] - 1 Week Mic Richardson PA [Primary Care Provider] - 1 Week Discharge Orders: Discharge Order (Routine); Ordered 08/26/22 Ordered By: Dario Phelps Diet: Advance to usual diet Activity on Discharge: As tolerated Stand Alone Forms: Patient Portal Discharge page Care Plan Goals: reocvery Health Concerns: diplopia Plan of Treatment: use eye patch, follow up with neuro, follow up labs done in hospital Assessment: see above
--- NOTE | 2022-08-26 15:54 | MHC.CM.PN ---
Patient has been medically cleared for dc to home today, self care.
[2022-08-28 05:39] LABS: Lyme Abs Screen <0.90 index
[2022-09-03 23:24] LABS: Acetylcholine Recep Modulating 10; Acetylcholine Recept. Blocking <15 (<15); Acetylcholine Receptor Binding <0.30 nmol/L
== END 2022-08-26 18:15 | disposition home or self-care (01) ==
LOC: HO.ED 23:05 → HO.EDOVER 23:21 → HO.IMC 08-26 06:11
PROVIDERS: Physician Assistant Medical; Admitting Provider Internal Medicine; Emergency Provider Emergency Medicine; PCP Physician Assistant; Visit Provider Internal Medicine
DX: H53.2 Diplopia (principal); I10 Essential (primary) hypertension; E11.9 Type 2 diabetes mellitus without complications
CPT/HCPCS: 36415; 70450; 70496; 70498; 70551; 80053; 80061; 82947; 83036; 83519; 85025; 85652; 86140; 86617; 86618; 96372; 99222; 99285; Q9967